=== PATIENT | female | born 1995 | race Caucasian/White ===

== ENCOUNTER 2019-10-05 02:20 | Emergency (ER) | payer OTHER ==
[~2019-10-05] VITALS: Ht 167.6 cm; Wt 56.7 kg
[2019-10-05] MEDS ORDERED: FLUOXETINE HCL40 MG PO (02:31)
[2019-10-05] MEDS ORDERED: BIRTH CONTROL (02:32)
[2019-10-05] MEDS ORDERED: AUGMENTIN 875-1 EACH PO (02:55)
[2019-10-05 03:37] VITALS: BP 101/60
== END 2019-10-05 03:37 | disposition home or self-care (01) ==
LOC: M.ERS 02:20
DX: S61.250A Open bite of right index finger without damage to nail, initial encounter (principal); F41.9 Anxiety disorder, unspecified; F32.9 Major depressive disorder, single episode, unspecified; W54.0XXA Bitten by dog, initial encounter; Y93.89 Activity, other specified; Y92.89 Other specified places as the place of occurrence of the external cause; Y99.8 Other external cause status